=== PATIENT | female | born 1980 | race African-American/Black ===

== ENCOUNTER 2021-09-04 12:42 | Emergency (ER) | payer OTHER ==
[~2021-09-04] VITALS: Ht 160 cm; Wt 67.8 kg
[2021-09-04 13:02] VITALS: BP 125/70
[2021-09-04] MEDS ORDERED: PROM118S5 PO (14:37)
--- NOTE | 2021-09-04 14:50 | NUR ---
Patient discharged with v/s stable. Written and verbal after care instructions given and explained. Patient alert, oriented and verbalized understanding of instructions. Ambulatory with steady gait. All questions addressed prior to discharge. ID band removed. Patient advised to follow up with PMD. Rx of PROMETHAZINE-DM SYRUP given. Patient educated on indication of medication including possible reaction and side effects. Opportunity to ask questions provided and answered.
[2021-09-04 14:51] VITALS: BP 125/70
== END 2021-09-04 14:51 | disposition home or self-care (01) ==
LOC: MED 12:42
DX: B34.9 Viral infection, unspecified (principal); Z79.899 Other long term (current) drug therapy
CPT/HCPCS: 99283

== ENCOUNTER 2021-11-22 15:29 | Emergency (ER) | payer OTHER ==
[~2021-11-22] VITALS: Ht 160 cm; Wt 69.6 kg
[~2021-11-22 15:29] MED LIST: PROM118S5 PO
[2021-11-22 15:34] VITALS: BP 152/89
--- NOTE | 2021-11-22 15:44 | NUR ---
PT AMB TO BED 10
--- NOTE | 2021-11-22 15:50 | NUR ---
Dr Chao at bedside for evaluation
[2021-11-22] MEDS ORDERED: predniSONE 20 MG TAB PO ONE (15:55)
[2021-11-22] MEDS ORDERED: FAMOTIDINE 20 MG TAB PO ONE (15:55)
--- NOTE | 2021-11-22 16:10 | NUR ---
41 Y/O FEMALE C/O LEFT EYE SWELLING W ITHCING THAT BEGAN AROUND 2:30PM. SIMILAR SUDDEN REACTION TO RIGHT EYE AND MOUTH LAST SATURDAY, PT REPORTS TAKING BENADRYL IMMEDIATELY WITH RELIEF. DENIES SOB, CP, FEVER, CHILLS, NVD. DENIES TRYING NEW FOODS, CHANGES IN DETERGENT, LOTION ETC. RESPIRATIONS EVEN AND UNLABORED, NO SIGNS OF RESPIRATORY DISTRESS OBSERVED.
[2021-11-22] MEDS ORDERED: FAMO-90 PO (16:57)
[2021-11-22] MEDS ORDERED: EPIN1KIT31 IM (16:57)
[2021-11-22] MEDS ORDERED: PRED20TA5 PO (16:57)
[2021-11-22] MEDS ORDERED: BEN50 PO (16:57)
[2021-11-22 17:15] VITALS: BP 152/89
--- NOTE | 2021-11-22 17:15 | NUR ---
Patient discharged with v/s stable. Written and verbal after care about allergies, angioedema instructions given and explained. Patient alert, oriented and verbalized understanding of instructions. Ambulatory with steady gait. All questions addressed prior to discharge. ID band removed. Patient advised to follow up with PMD. Rx of Benadryl, Pepcid, Epipen given. Patient educated on indication of medication including possible reaction and side effects. Opportunity to ask questions provided and answered.
== END 2021-11-22 17:15 | disposition home or self-care (01) ==
LOC: MED 15:29
DX: T78.3XXA Angioneurotic edema, initial encounter (principal); R03.0 Elevated blood-pressure reading, without diagnosis of hypertension; Z79.899 Other long term (current) drug therapy
CPT/HCPCS: 99283; J7512

== ENCOUNTER 2022-02-26 16:57 | Emergency (ER) | payer OTHER ==
[~2022-02-26] VITALS: Ht 160 cm; Wt 69.6 kg
[~2022-02-26 16:57] MED LIST changes: +BEN50 PO; +EPIN1KIT31 IM; +FAMO-90 PO; +PRED20TA5 PO
[2022-02-26 17:09] VITALS: BP 118/87
--- NOTE | 2022-02-26 17:55 | NUR ---
COVID, FLU SWABS DONE.
[2022-02-26] MEDS ORDERED: SUD30 PO (18:52)
--- NOTE | 2022-02-26 19:13 | NUR ---
Patient discharged with v/s stable. Written and verbal after care instructions given and explained. Patient verbalized understanding. Ambulatory with steady gait. All questions addressed prior to discharge. Advised to follow up with PMD.
--- NOTE | 2022-02-27 05:22 | NUR ---
The patient's care was reviewed and supervised by Lily Cadena RN, RN.
== END 2022-02-26 19:13 | disposition home or self-care (01) ==
LOC: MED 16:57
DX: J06.9 Acute upper respiratory infection, unspecified (principal); Z20.822 Contact with and (suspected) exposure to COVID-19; Z79.899 Other long term (current) drug therapy
CPT/HCPCS: 99283

== ENCOUNTER 2022-07-18 13:21 | Emergency (ER) | payer OTHER ==
[~2022-07-18] VITALS: Ht 160 cm; Wt 61.2 kg
[~2022-07-18 13:21] MED LIST changes: +SUD30 PO
[2022-07-18 14:24] VITALS: BP 141/88
--- NOTE | 2022-07-18 14:31 | NUR ---
DIEGO AND FLU SWABS COLLECTED
--- NOTE | 2022-07-18 14:43 | NUR ---
42/F C/O COUGH AND CONGESTION TODAY, DENIES TAKING MEDS FOR S/S. SON SICK WITH SAME S/S.
[2022-07-18] MEDS ORDERED: CETI-24 PO (14:56)
[2022-07-18] MEDS ORDERED: IBUP-2213 PO (14:56)
--- NOTE | 2022-07-18 16:16 | NUR ---
Patient discharged with v/s stable. Written and verbal after care instructions given and explained. Patient alert, oriented and verbalized understanding of instructions. Ambulatory with steady gait. All questions addressed prior to discharge. ID band removed. Patient advised to follow up with PMD. Rx of CETIRIZINE, IBUPROFEN given. Patient educated on indication of medication including possible reaction and side effects. Opportunity to ask questions provided and answered.
== END 2022-07-18 16:18 | disposition home or self-care (01) ==
LOC: MED 13:21
DX: J06.9 Acute upper respiratory infection, unspecified (principal); Z20.822 Contact with and (suspected) exposure to COVID-19; Z79.899 Other long term (current) drug therapy
CPT/HCPCS: 99283

== ENCOUNTER 2022-08-19 16:02 | Emergency (ER) | payer OTHER ==
[~2022-08-19] VITALS: Ht 160 cm; Wt 70.8 kg
[~2022-08-19 16:02] MED LIST changes: +CETI-24 PO; +IBUP-2213 PO
[2022-08-19 16:10] VITALS: BP 124/64
[2022-08-19] MEDS ORDERED: LIDOCAINE MPF 1% 10 MG/ML VIAL INJ ONE (16:50)
[2022-08-19] MEDS ORDERED: LIDOCAINE MPF 1% 5 ML ONE (16:53)
[2022-08-19] MEDS ORDERED: ACET-8905 PO (17:19)
[2022-08-19] MEDS ORDERED: CHLO473S62 PO (17:24)
--- NOTE | 2022-08-19 17:49 | NUR ---
Patient discharged with v/s stable. Written and verbal after care instructions given and explained. Patient alert, oriented and verbalized understanding of instructions. Ambulatory with steady gait. All questions addressed prior to discharge. ID band removed. Patient advised to follow up with PMD. Rx of [place] and Peridex given. Patient educated on indication of medication including possible reaction and side effects. Opportunity to ask questions provided and answered.
== END 2022-08-19 17:48 | disposition home or self-care (01) ==
LOC: MED 16:02
DX: K04.7 Periapical abscess without sinus (principal); Z79.899 Other long term (current) drug therapy; Z79.1 Long term (current) use of non-steroidal anti-inflammatories (NSAID); Z79.891 Long term (current) use of opiate analgesic
CPT/HCPCS: 41800; 99284; J2001

== ENCOUNTER 2022-12-25 19:46 | Emergency (ER) | payer OTHER ==
[~2022-12-25] VITALS: Ht 160 cm; Wt 71.7 kg
[~2022-12-25 19:46] MED LIST changes: +ACET-8905 PO; +CHLO473S62 PO
[2022-12-25 20:30] VITALS: BP 139/90; PULSE 90; RESP 17; TEMP 98; O2SAT 100
[2022-12-25 22:28] VITALS: BP 139/90; PULSE 90; RESP 17; TEMP 98; O2SAT 100
== END 2022-12-25 22:28 | disposition left against medical advice (07) ==
LOC: MED 19:46
DX: M25.561 Pain in right knee (principal); Z53.21 Procedure and treatment not carried out due to patient leaving prior to being seen by health care provider
CPT/HCPCS: 73562; 99281

== ENCOUNTER 2023-04-14 19:26 | Emergency (ER) | payer OTHER ==
[~2023-04-14] VITALS: Ht 160 cm; Wt 68.9 kg
[2023-04-14 20:04] VITALS: BP 122/80; PULSE 68; RESP 20; TEMP 98.7; O2SAT 98
== END 2023-04-14 20:23 | disposition home or self-care (01) ==
LOC: MED 19:26
DX: J06.9 Acute upper respiratory infection, unspecified (principal); Z79.899 Other long term (current) drug therapy; Z79.1 Long term (current) use of non-steroidal anti-inflammatories (NSAID)
CPT/HCPCS: 99281

== ENCOUNTER 2023-09-11 16:21 | Emergency (ER) | payer OTHER ==
[~2023-09-11] VITALS: Ht 160 cm; Wt 69.9 kg
[2023-09-11 16:22] VITALS: BP 136/86; PULSE 107; RESP 18; TEMP 97.9; O2SAT 98
[2023-09-11] MEDS: KETOROLAC 30 MG/ML VIAL IM ONE (17:24)
[2023-09-11] MEDS: LIDOCAINE 5% 1 EA PATCH TP ONE (17:24)
[2023-09-11] MEDS ORDERED: CYCL-711 PO (17:42)
[2023-09-11] MEDS ORDERED: ACET-9496 PO (17:42)
[2023-09-11] MEDS ORDERED: IBUP-2218 PO (17:42)
[2023-09-11 18:06] VITALS: BP 136/86; PULSE 107; RESP 18; TEMP 97.9; O2SAT 98
== END 2023-09-11 18:06 | disposition home or self-care (01) ==
LOC: MED 16:21
DX: M54.31 Sciatica, right side (principal); R51.9 Headache, unspecified; Z79.899 Other long term (current) drug therapy
CPT/HCPCS: 81025; 96372; 99283; J1885

== ENCOUNTER 2024-01-17 17:51 | Emergency (ER) | payer OTHER ==
[~2024-01-17] VITALS: Ht 160 cm; Wt 71.4 kg
[~2024-01-17 17:51] MED LIST changes: +ACET-9496 PO; +CYCL-711 PO; +IBUP-2218 PO
[2024-01-17 18:22] VITALS: BP 141/97; PULSE 82; RESP 18; TEMP 97.3; O2SAT 100
[2024-01-17 20:12] LABS: BASOPHILS % (AUTO) 0.3 % (0.0-2.0); EOSINOPHILS # (AUTO) 0.1 K/uL (0-0.4); HEMATOCRIT 34.5 % (36-48); HEMOGLOBIN 11.5 g/dL (12.0-16.0); LYMPHOCYTES # (AUTO) 3.1 K/uL (2.5-16.5); LYMPHOCYTES % (AUTO) 23.3 % (20.5-51.1); MEAN CORPUSCULAR HEMOGLOBIN 29 pg (27-31); MEAN CORPUSCULAR HGB CONC 33 g/dL (33-37); MEAN CORPUSCULAR VOLUME 86.3 fL (80-94); MONOCYTES # (AUTO) 0.5 K/uL (0.8-1.0); MONOCYTES % (AUTO) 4.2 % (1.7-9.3); NEUTROPHILS # (AUTO) 9.3 K/uL (1.8-7.7); NEUTROPHILS % (AUTO) 71.2 % (42.2-75.2); PLATELET COUNT (AUTO) 339 K/uL (140-450); RED CELL DISTRIBUTION WIDTH 15.4 % (11.6-13.7); WHITE BLOOD COUNT (AUTO) 13.1 K/uL (4.8-10.8)
[2024-01-17 20:20] LABS: APPEARANCE,URINE CLEAR (CLEAR); BILIRUBIN,URINE NEGATIVE (NEGATIVE); BLOOD, URINE 1+ (NEGATIVE); COLOR,URINE YELLOW (YELLOW); LEUKOCYTE ESTERASE ,URINE NEGATIVE (NEGATIVE); NITRITE, URINE NEGATIVE (NEGATIVE); PROTEIN,URINE NEGATIVE (NEGATIVE); UGLUCOSE NEGATIVE (NEGATIVE); UROBILINOGEN,URINE 0.2 EU/dL (0.2 - 1)
[2024-01-17 20:26] LABS: ALBUMIN 3.6 g/dL (3.4-5.0); ANION GAP 13.6 (8-16); CALCIUM 8.6 mg/dL (8.5-10.1); CARBON DIOXIDE 23.9 mmol/L (21-32); CREATININE 0.8 mg/dL (0.6-1.3); POTASSIUM 3.5 mmol/L (3.5-5.1); TOTAL BILIRUBIN 0.2 mg/dL (0.0-1.0); TOTAL PROTEIN, SERUM 7.6 g/dL (6.4-8.2)
[2024-01-17] MEDS: KETOROLAC 30 MG/ML VIAL IVP ONE (22:12)
[2024-01-17] MEDS ORDERED: IBUP-2213 PO (22:19)
[2024-01-17] MEDS ORDERED: LID5T TP (22:19)
== END 2024-01-17 22:35 | disposition home or self-care (01) ==
LOC: MED 17:51
DX: K57.90 Diverticulosis of intestine, part unspecified, without perforation or abscess without bleeding (principal); Z79.899 Other long term (current) drug therapy
CPT/HCPCS: 36415; 74177; 80053; 81003; 81025; 83690; 85025; 96374; 99285; J1885; Q9967